=== PATIENT | female | born 1985 | race Two or more races ===

== ENCOUNTER → 2020-06-13 | Outpatient (REF) | payer OTHER ==
[2020-06-13 17:13] LABS: HEMATOCRIT 32.5 % (36.0-47.0); HEMOGLOBIN 9.5 g/dl (12.0-15.5); MEAN CORPUSCULAR HEMOGLOBIN 20.8 pg (27.0-33.0); MEAN CORPUSCULAR HGB CONC 29.2 g/dl (32.0-36.5); MEAN CORPUSCULAR VOLUME 71.1 fl (80.0-96.0); PLATELET COUNT, AUTOMATED 377 10^3/uL (150-450); RED BLOOD COUNT 4.57 10^6/uL (4.00-5.40); WHITE BLOOD COUNT 7.8 10^3/uL (4.0-10.0)
[2020-06-13 17:44] LABS: ALT/SGPT 13 U/L (12-78); BILIRUBIN,TOTAL 0.2 MG/DL (0.2-1.0); CREATININE FOR GFR 0.64 MG/DL (0.55-1.30); GLOMERULAR FILTRATION RATE > 60.0 (>60); LDH LACTATE DEHYDROGENASE 138 U/L (84-246); URIC ACID 3.8 MG/DL (2.6-6.0)
[2020-06-13 18:32] LABS: HEPATITIS C VIRUS ABY INDEX 0.2 INDEX (<0.8)
[2020-06-13 18:33] LABS: HIV 1&2 SCREEN CENTAUR NEGATIVE (NEGATIVE)
[2020-06-14 12:46] LABS: TOTAL PROTEIN,RANDOM URINE 25.3 MG/DL (0.0-12.0)
== END ==
LOC: M PLALAB 14:10
PROVIDERS: ATTEND Advanced Practice Midwife
DX: O34.219 Maternal care for unspecified type scar from previous cesarean delivery (principal); Z3A.00 Weeks of gestation of pregnancy not specified

== ENCOUNTER → 2020-07-12 | Outpatient (REF) | payer OTHER ==
[2020-07-12 18:03] LABS: HEMATOCRIT 32.3 % (36.0-47.0); HEMOGLOBIN 9.6 g/dl (12.0-15.5); MEAN CORPUSCULAR HEMOGLOBIN 21.5 pg (27.0-33.0); MEAN CORPUSCULAR HGB CONC 29.7 g/dl (32.0-36.5); MEAN CORPUSCULAR VOLUME 72.4 fl (80.0-96.0); PLATELET COUNT, AUTOMATED 370 10^3/uL (150-450); RED BLOOD COUNT 4.46 10^6/uL (4.00-5.40); WHITE BLOOD COUNT 7.6 10^3/uL (4.0-10.0)
[2020-07-12 18:06] LABS: ALT/SGPT 8 U/L (12-78); BILIRUBIN,TOTAL 0.2 MG/DL (0.2-1.0); CREATININE FOR GFR 0.61 MG/DL (0.55-1.30); GLOMERULAR FILTRATION RATE > 60.0 (>60); LDH LACTATE DEHYDROGENASE 130 U/L (84-246)
[2020-07-12 18:07] LABS: URIC ACID 3.5 MG/DL (2.6-6.0)
[2020-07-12 18:57] LABS: TOTAL PROTEIN,RANDOM URINE 35.9 MG/DL (0.0-12.0)
== END ==
LOC: M PLALAB 15:21
PROVIDERS: ATTEND Advanced Practice Midwife
DX: O10.919 Unspecified pre-existing hypertension complicating pregnancy, unspecified trimester (principal)

== ENCOUNTER → 2020-07-28 | Outpatient (CLI) | payer OTHER ==
--- NOTE | 2020-07-28 19:22 | REP ---
INDICATION: ANATOMY COMPARISON: None. TECHNIQUE: Transabdominal obstetrical ultrasound with color Doppler evaluation. FINDINGS: Examination demonstrates a single live intrauterine in breech presentation. motion is identified by technologist. Placenta is noted posterior and grade 1 without evidence for placenta previa or abruption. Amniotic fluid volume is normal. Cervix measures 3.2 cm in length and appears closed. Placental tip 2.6 cm from the closed internal os. Gestational age by LMP 19 weeks 1 day with JENSEN 12/21/2020. Gestational age by current measurements 18 weeks 5 days with JENSEN 12/24/2020. FHR equals 143 beats per minute. BPD: 4.1 cm there is 18 weeks 2 days HC: 15.4 cm 18 weeks 2 days AC: 13.6 cm 19 weeks 0 days FL: 3.0 cm 19 weeks 1 day HL: 2.7 cm 18 weeks 5 days HC/AC: 1.13 Estimated weight 267 grams (36thpercentile). Anatomical assessment demonstrates normal structures including cranium, choroid plexus, cavum, cerebellum/posterior fossa, facial features, lungs, diaphragm, stomach, cord insertion/three-vessel cord, kidneys/bladder, spine, and extremities. IMPRESSION: 1. Single live intrauterine in breech presentation demonstrating appropriate estimated weight and growth. 2. Limited evaluation of the heart/ventricular outflow tracts may warrant re-evaluation and follow-up. <Electronically signed by Nnamdi Sarkar > 07/28/201918
== END ==
LOC: M WHC 11:47
PROVIDERS: ATTEND Advanced Practice Midwife
DX: O32.1XX0 Maternal care for breech presentation, not applicable or unspecified (principal); Z3A.19 19 weeks gestation of pregnancy

== ENCOUNTER 2020-09-03 00:31 | Outpatient (CLI) | payer OTHER ==
[2020-09-03] VITALS (7 sets, daily range): BP systolic 172–233; BP diastolic 89–131
[2020-09-03] MEDS ORDERED: LR 1,000 ML IV SCH (01:33)
[2020-09-03] MEDS ORDERED: LABETALOL 200 MG TAB PO SCH (01:35)
[2020-09-03] MEDS ORDERED: LABETALOL 100MG/20ML VIAL IV ONE (01:35)
[2020-09-03 02:05] LABS: APPEARANCE, URINE CLOUDY (CLEAR); BACTERIA, URINE AUTO NEGATIVE (NEGATIVE); BILIRUBIN, URINE AUTO NEGATIVE (NEGATIVE); BLOOD, URINE BLOOD NEGATIVE (NEGATIVE); COLOR, URINE YELLOW (YELLOW); GLUCOSE, URINE (UA) AUTO NEGATIVE (NEGATIVE); KETONE, URINE AUTO NEGATIVE (NEGATIVE); LEUKOCYTE ESTERASE, URINE AUTO 1+ (NEGATIVE); MUCUS, URINE SMALL (NEGATIVE); NITRITE, URINE AUTO NEGATIVE (NEGATIVE); PROTEIN, URINE AUTO 3+ mg/dL (NEGATIVE); RBC, URINE AUTO 12 /HPF (0-3); SQUAMOUS EPITHELIAL CELL UR AU 38 /HPF (0-6); WBC, URINE AUTO 13 /HPF (0-3)
[2020-09-03 02:08] LABS: HEMATOCRIT 34.9 % (36.0-47.0); HEMOGLOBIN 10.6 g/dl (12.0-15.5); MEAN CORPUSCULAR HGB CONC 30.4 g/dl (32.0-36.5); MEAN CORPUSCULAR VOLUME 75.7 fl (80.0-96.0); RED BLOOD COUNT 4.61 10^6/uL (4.00-5.40); WHITE BLOOD COUNT 10.8 10^3/uL (4.0-10.0)
[2020-09-03 02:23] LABS: AMPHETAMINES URINE REFLEX NEGATIVE (NEGATIVE); BARBITURATES URINE REFLEX NEGATIVE (NEGATIVE); BENZODIAZEPINES URINE REFLEX NEGATIVE (NEGATIVE); CANNABINOIDS URINE REFLEX NEGATIVE (NEGATIVE); COCAINE METABOLITE URINE REFLE NEGATIVE (NEGATIVE); METHADONE URINE REFLEX NEGATIVE (NEGATIVE); OPIATES URINE REFLEX NEGATIVE (NEGATIVE); PHENCYCLIDINE URINE REFLEX NEGATIVE (NEGATIVE)
[2020-09-03 02:24] LABS: TOTAL PROTEIN,RANDOM URINE 618.9 MG/DL (0.0-12.0)
[2020-09-03] MEDS ORDERED: LABETALOL 100MG/20ML VIAL IV STA ×2 (02:28→02:44)
[2020-09-03 02:29] LABS: PLATELET COUNT, AUTOMATED 82 10^3/uL (150-450)
[2020-09-03 02:34] LABS: ALT/SGPT 43 U/L (12-78); BLOOD UREA NITROGEN 11 MG/DL (7-18); CALCIUM LEVEL 8.8 MG/DL (8.5-10.1); CARBON DIOXIDE LEVEL 29 MEQ/L (21-32); CHLORIDE LEVEL 104 MEQ/L (98-107); CREATININE FOR GFR 0.74 MG/DL (0.55-1.30); GLOMERULAR FILTRATION RATE > 60.0 (>60); GLUCOSE, FASTING 106 MG/DL (70-100); POTASSIUM SERUM 4.2 MEQ/L (3.5-5.1); SODIUM LEVEL 137 MEQ/L (136-145)
[2020-09-03 02:35] LABS: ALBUMIN 2.4 GM/DL (3.2-5.2); BILIRUBIN,TOTAL 0.3 MG/DL (0.2-1.0); LDH LACTATE DEHYDROGENASE 461 U/L (84-246); TOTAL PROTEIN 6.9 GM/DL (6.4-8.2); URIC ACID 5.8 MG/DL (2.6-6.0)
[2020-09-03] MEDS ORDERED: MAG Sulf (OBGYN) 20GM/500ML 20,000 MG in IV 1 EA IV SCH (02:41)
[2020-09-03] MEDS ORDERED: MAG Sulf (L&D) 4 GM/100 ML 4 GM in IV 1 EA IV ONE (02:45)
[2020-09-03] MEDS ORDERED: BETAMETHASONE SOLUSPAN 6MG/ML 5ML VIAL (J0702 PER 3MG) IM SCH (03:00)
--- NOTE | 2020-09-03 03:15 | IPNPDOC ---
Text Note Date of Service The patient was seen on 09/03/20. NOTE Outpatient 34yo JENSEN 12/21/2020. Presents at 24w3d with complaints of epigastric pain that goes into her back. She denies headache or visual disturbances. History is significant for previous pregnancies with GHTN, Preeclampsia and emergent for PPROM @ 35wks. Current chronic hypertension, current Rx labetalol 200mg BID that she reports not taking the past 2 days; anemia; multiple social issues at one point living in a fdc with her children. Initial BP on arrival 205/120, with a high of 233/122. Labetalol 200mg PO given followed by IV doses of 20, 40 and 80mg. Current BP 181/100. Lab results are significant for preeclampsia/HELLP with a urine ratio of 5.73, AST 64/ALT 43, LDH 461, uric acid 5.8, platelets 82. heart tracing reassuring for gestation, 145, fetus is very active. Reviewed patient status with Dr Austin. Mag sulfate initiated, close I&O, antihypertensive therapy, betamethasone, liver and ob sono. Will initiate consult with P[facility] and prepare for transfer once stable. VS,Fishbone, I+O VS, Fishbone, I+O Laboratory Tests 09/03/20 01:53 Vital Signs Date Time Temp Pulse Resp B/P (MAP) Pulse Ox O2 Delivery O2 Flow Rate FiO2 09/03/20 02:43 75 185/105 (131) Mariel Herrmann CNM Sep 03, 2020 03:02
[2020-09-03] MEDS ORDERED: hydrALAZINE 20MG/ML 1ML VIAL (J0360 PER 20MG) IV ONE ×2 (03:40→04:30)
--- NOTE | 2020-09-03 03:52 | IPNPDOC ---
Text Note Date of Service The patient was seen on 09/03/20. NOTE Blood pressures 170's/99-100. Mag sulfate bolus is complete status remains reassuring for gestation. Ultrasounds are complete, results pending Consult Dr Wallace @ [facility]. Reviewed patient status with him. Agrees to accept transfer. Hydralazine 5mg ordered. Pt informed, agrees to transfer VS,Fishbone, I+O VS, Fishbone, I+O Laboratory Tests 09/03/20 01:53 Vital Signs Date Time Temp Pulse Resp B/P (MAP) Pulse Ox O2 Delivery O2 Flow Rate FiO2 09/03/20 02:43 75 185/105 (131) Mariel Herrmann CNM Sep 03, 2020 03:52
--- NOTE | 2020-09-03 04:27 | REPVR ---
PROCEDURE INFORMATION: Exam: US Abdomen, Limited; Right Upper Quadrant Exam date and time: 09/03/2020 3:42 AM Age: 34 years old Clinical indication: Abdominal pain; Epigastric; ; Prior surgery; Surgery date: 6+ months; Surgery type: S/P cholecystectomy in 2018; Additional info: Preeclampsia, epigastric pain TECHNIQUE: Imaging protocol: US abdomen. Real time ultrasound with image documentation. Limited exam focused on the right upper quadrant. COMPARISON: No relevant prior studies available. FINDINGS: Liver: Normal. No masses. Gallbladder: Status post cholecystectomy. Common bile duct: Normal. No stones. No dilation. Pancreas: Visualized pancreas is unremarkable. Right kidney: Normal. No mass. No hydronephrosis. IMPRESSION: No acute findings. Electronically signed by: Jeffery Lezama On 09/03/2020 04:28:00 AM
--- NOTE | 2020-09-03 04:33 | REPVR ---
PROCEDURE INFORMATION: Exam: US ; Follow up Exam date and time: 09/03/2020 3:42 AM Age: 34 years old Clinical indication: Lmp or gestational age (in weeks): 24w 3d; Other: Preeclampsia; ; Additional info: Preeclampsia, epigastric pain TECHNIQUE: Imaging protocol: Transabdominal ultrasound of the uterus, real time with image documentation. Follow-up (eg, re-evaluation of size by measuring standard growth parameters and amniotic fluid volume, re-evaluation of organ system(s) suspected or confirmed to be abnormal on a previous scan). COMPARISON: OBS COMPLETE US 07/28/2020 12:09 PM FINDINGS: Gestation: Single viable intrauterine gestation. presentation: Cephalic presentation. heart rate: heart rate is 134 bpm. Placenta: Posterior placenta. Amniotic fluid: Oligohydramnios the largest fluid pocket measuring to 2.4 cm in depth. BIOMETRY: Gestational age (AUA): Sonographically estimated gestational age is 22 weeks 2 days. Estimated due date (AUA): Estimated date of delivery is 01/05/2021. Estimated weight: Estimated weight is 456 g, 2nd percentile. MATERNAL: Cervix: Cervical length is 3.6 cm. IMPRESSION: Single viable intrauterine gestation 22 weeks 2 days of age. Interval development of oligohydramnios. Estimated weight is 456 g, 2nd percentile versus 36th percentile on prior exam. Electronically signed by: Jeffery Lezama On 09/03/2020 04:33:56 AM
--- NOTE | 2020-09-03 04:41 | IPNPDOC ---
Text Note Date of Service The patient was seen on 09/03/20. NOTE Outpatient Sono reports reviewed. Liver sono without acute findings OB sono FH 134, posterior placenta, oligohydramnios, EFW 456gm, 2% Transfer arrangements in process VS,Meño, I+O VS, Meño, I+O Laboratory Tests 09/03/20 01:53 Vital Signs Date Time Temp Pulse Resp B/P (MAP) Pulse Ox O2 Delivery O2 Flow Rate FiO2 09/03/20 03:56 167/99 09/03/20 02:43 75 Mariel Herrmann CNM Sep 03, 2020 04:41
== END 2020-09-03 05:30 | disposition short-term general hospital (02) ==
LOC: M LDO 00:31
PROVIDERS: ATTEND Advanced Practice Midwife
DX: O14.12 Severe pre-eclampsia, second trimester (principal); O41.02X0 Oligohydramnios, second trimester, not applicable or unspecified; Z3A.24 24 weeks gestation of pregnancy
CPT/HCPCS: 36415; 76705; 76816; 80053; 80307; 81001; 82247; 82565; 82570; 83615; 84156; 84450; 84460; 84550; 85027; 85049; 85055; 85384; 87490; 87590; J0360; J0702; J3475; U0002

== ENCOUNTER 2021-03-05 23:13 | Emergency (ER) | payer OTHER ==
[~2021-03-05] VITALS: Ht 170.2 cm; Wt 101.7 kg
[2021-03-05 23:14] VITALS: BP 176/110
== END 2021-03-06 03:04 | disposition left against medical advice (07) ==
LOC: M ED 23:13
DX: Z53.29 Procedure and treatment not carried out because of patient's decision for other reasons (principal)